=== PATIENT | male | born 1990 | race Caucasian/White ===

== ENCOUNTER 2016-10-30 16:27 | Emergency (ER) | payer MEDICAID ==
[2016-10-30] MEDS ORDERED: NS 1,000 ML IV ONE (16:30)
[2016-10-30] MEDS ORDERED: INSULIN REGULAR HUMAN 100 UNIT/ML IVP ONE (16:30)
--- NOTE | 2016-10-30 16:34 | EDPHY ---
HPI/HX/ROS/PE/MDM Narrative: CHIEF COMPLAINT: "Feeling sick" HPI: The patient is a 25 y/o male arriving via EMS complaining of "feeling sick " for the last 2-3 days. He has a history of diabetes with poor medication compliance. He reports he has been sleeping outside for the past few nights and has not had access to insulin for the last 3 days. His BGL was 368 for EMS. He only ate a small breakfast this morning. He denies fever. REVIEW OF SYSTEMS: Aside from elements discussed in the HPI, a comprehensive 10-point review of systems was reviewed and is negative. PMH: Diabetes with poor medication compliance. SOCIAL HISTORY: Currently homeless. PHYSICAL EXAM: General:Patient is alert, in no acute distress. ENT:Eyes are normal to inspection. ENT inspection normal. Neck: Normal inspection. Full range of motion. Respiratory:No respiratory distress. Breath sounds normal bilaterally. Cardiovascular: Regular rate and rhythm. Strong peripheral pulses. Normal cap refill. Abdomen:The abdomen is nontender to palpation. There are no peritoneal signs. There are normal bowel sounds. Back: Normal to inspection. No tenderness to palpation. Skin: Normal color. No rash. Warm and dry. Extremities: Normal appearance. Full range of motion. Neuro: Oriented x3. Normal motor function. Normal sensory function. ED Course: IV established. Labs drawn including CBC, CHEM. 1L IV NS administered. BGL is 384. 5 units insulin administered. MDM: This patient has an extensive history of emergency department visits secondary to noncompliance with insulin. He presents essentially for the same presentation. His glucose is elevated but there is no evidence of DKA. The patient was given IV insulin and food. On re-evaluation he feels well and his glucose remains reasonably well controlled. He is appropriate for outpatient management. - Data Points Laboratory Results: Laboratory Results 10/30/16 16:53 10/30/16 16:30 10/30/16 10/30/16 10/30/16 19:08 16:53 16:30 WBC 5.14 10^3/uL 10^3/uL (3.80-9.50) RBC 5.93 10^6/uL 10^6/uL (4.40-6.38) Hgb 17.3 g/dL g/dL (13.7-17.5) POC Hgb 14.6 gm/dL gm/dL (14.5-17.3) Hct 48.6 % % (40.0-51.0) POC Hct 43 % % (42.8-50.6) MCV 82.0 fL fL (81.5-99.8) MCH 29.2 pg pg (27.9-34.1) MCHC 35.6 g/dL g/dL (32.4-36.7) RDW 11.8 % % (11.5-15.2) Plt Count 273 10^3/uL 10^3/uL (150-400) MPV 8.8 fL fL (8.7-11.7) Neut % (Auto) 46.5 % % (39.3-74.2) Lymph % (Auto) 42.0 % % (15.0-45.0) [place] % (Auto) 9.1 % % (4.5-13.0) Eos % (Auto) 1.6 % % (0.6-7.6) Baso % (Auto) 0.6 % % (0.3-1.7) Nucleat RBC Rel Count 0.0 % % (0.0-0.2) Absolute Neuts (auto) 2.39 10^3/uL 10^3/uL (1.70-6.50) Absolute Lymphs (auto) 2.16 10^3/uL 10^3/uL (1.00-3.00) Absolute Monos (auto) 0.47 10^3/uL 10^3/uL (0.30-0.80) Absolute Eos (auto) 0.08 10^3/uL 10^3/uL (0.03-0.40) Absolute Basos (auto) 0.03 10^3/uL 10^3/uL (0.02-0.10) Absolute Nucleated RBC 0.00 10^3/uL 10^3/uL (0-0.01) Immature Gran % 0.2 % % (0.0-1.1) Immature Gran # 0.01 10^3/uL 10^3/uL (0.00-0.10) POC Sodium 131 mEq/L L mEq/L (134-144) Sodium 130 mEq/L L mEq/L (134-144) POC Potassium 4.4 mEq/L mEq/L (3.3-5.0) Potassium 4.8 mEq/L mEq/L (3.5-5.2) POC Chloride 94 mEq/L L mEq/L (96-108) Chloride 93 mEq/L L mEq/L (97-110) Carbon Dioxide 23 mEq/l mEq/l (22-31) Anion Gap 14 mEq/L mEq/L (8-16) POC BUN 20 mg/dL mg/dL (7-23) BUN 17 mg/dL mg/dL (7-23) Creatinine 0.4 mg/dL L mg/dL (0.7-1.3) POC Creatinine 0.4 mg/dL L mg/dL (0.8-1.5) Estimated GFR > 60 Glucose 384 mg/dL H mg/dL (70-100) POC Glucose 360 mg/dL H mg/dL (70-100) Calcium 9.3 mg/dL mg/dL (8.5-10.4) Medications Given: Discontinued Medications Sodium Chloride (Ns) 1,000 mls @ 0 mls/hr IV ONCE ONE PRN Reason: Wide Open Stop: 10/30/16 16:31 Last Admin: 10/30/16 17:12 Dose: 1,000 mls Insulin Human Regular (Humulin R) 5 unit IVP EDNOW ONE Stop: 10/30/16 16:31 Last Admin: 10/30/16 17:45 Dose: 5 unit Point of Care Test Results: 10/30/16 19:08 POC Sodium 131 L POC Potassium 4.4 POC Chloride 94 L POC BUN 20 POC Creatinine 0.4 L POC Glucose 360 H General Initial Vital Signs: Initial Vital Signs Temperature (C) 36.4 C 10/30/16 16:41 Heart Rate 91 10/30/16 16:41 Respiratory Rate 16 10/30/16 16:41 Blood Pressure 98/62 L 10/30/16 16:41 O2 Sat (%) 97 10/30/16 16:41 O2 Delivery Mode Room Air Allergies/Adverse Reactions: No Known Allergies Allergy (Verified 08/18/16 07:20) Home Medications: Medication Instructions Recorded NK [No Known Home Meds] 08/19/16 Departure - Departure Disposition: Home, Routine, Self-Care Clinical Impression: Hyperglycemia Condition: Good Instructions: Diabetic Hyperglycemia (ED) Additional Instructions: 1. Check your blood sugar regularly and take your insulin as prescribed. 2. Follow up with your primary care provider on Tuesday for unimproved symptoms. Referrals: [facility] [Other] - As per Instructions [facility],. [Clinic] - As per Instructions Report Scribed for: Cruz Jeong Report Scribed by: Lori Keller Date of Report: 10/30/16 Time of Report: 19:32 Physician Review and Approval Statement: Portions of this note were transcribed by an ED scribe. I personally performed the history, physical exam, and medical decision making; and confirm the accuracy of the information in the transcribed note.
[2016-10-30 16:44] VITALS: RESP 16
[2016-10-30 17:07] LABS: % IMMATURE GRANULYOCYTES 0.2 % (0.0-1.1); ABSOLUTE IMMATURE GRANULOCYTES 0.01 10^3/uL (0.00-0.10); ADD DIFF? NO; ADD MORPH? NO; ADD SCAN? NO; ATYPICAL LYMPHOCYTE FLAG 90 (0-99); FRAGMENT RBC FLAG 0 (0-99); HEMATOCRIT 48.6 % (40.0-51.0); HEMOGLOBIN 17.3 g/dL (13.7-17.5); LEFT SHIFT FLG 0 (0-99); LIPEMIA HEMOLYSIS FLAG 90 (0-99); MEAN CELL HEMOGLOBIN 29.2 pg (27.9-34.1); MEAN CELL HEMOGLOBIN CONCENTR. 35.6 g/dL (32.4-36.7); MEAN PLATELET VOLUME 8.8 fL (8.7-11.7); PLATELET CLUMPS FLAG 10 (0-99); PLATELET COUNT 273 10^3/uL (150-400); RED BLOOD CELL COUNT 5.93 10^6/uL (4.40-6.38); RED CELL DISTRIBUTION WIDTH 11.8 % (11.5-15.2)
[2016-10-30] MEDS ORDERED: INSULIN REGULAR HUMAN 100 UNIT/ML ONE (17:45)
[2016-10-30 18:01] LABS: ANION GAP 14 mEq/L (8-16); CALCIUM 9.3 mg/dL (8.5-10.4); CARBON DIOXIDE 23 mEq/l (22-31); CHLORIDE 93 mEq/L (97-110); CREATININE 0.4 mg/dL (0.7-1.3); GLOMERULAR FILTRATION RATE > 60; GLUCOSE 384 mg/dL (70-100); POTASSIUM 4.8 mEq/L (3.5-5.2); SODIUM 130 mEq/L (134-144)
[2016-10-30 19:44] VITALS: BP 112/76; PULSE 76; TEMP 96.8; O2SAT 98
== END 2016-10-30 19:45 | disposition home or self-care (01) ==
LOC: EDUNIT#
DX: E11.65 Type 2 diabetes mellitus with hyperglycemia (principal)
CPT/HCPCS: 82947-QW; 96374; J1815

== ENCOUNTER 2016-12-07 12:27 | Emergency (ER) | payer MEDICAID ==
[2016-12-07] MEDS ORDERED: NS 1,000 ML IV ONE ×2 (12:32)
[2016-12-07 14:43] LABS: % IMMATURE GRANULYOCYTES 0.2 % (0.0-1.1); ABSOLUTE IMMATURE GRANULOCYTES 0.01 10^3/uL (0.00-0.10); ADD DIFF? NO; ADD MORPH? NO; ADD SCAN? NO; ATYPICAL LYMPHOCYTE FLAG 20 (0-99); FRAGMENT RBC FLAG 0 (0-99); HEMATOCRIT 40.2 % (40.0-51.0); LEFT SHIFT FLG 0 (0-99); LIPEMIA HEMOLYSIS FLAG 90 (0-99); MEAN CELL HEMOGLOBIN CONCENTR. 34.8 g/dL (32.4-36.7); MEAN CELL VOLUME 83.4 fL (81.5-99.8); MEAN PLATELET VOLUME 8.5 fL (8.7-11.7); PLATELET CLUMPS FLAG 0 (0-99); PLATELET COUNT 245 10^3/uL (150-400); RED BLOOD CELL COUNT 4.82 10^6/uL (4.40-6.38); RED CELL DISTRIBUTION WIDTH 11.9 % (11.5-15.2)
[2016-12-07 15:00] LABS: ANION GAP 6 mEq/L (8-16); CALCIUM 8.4 mg/dL (8.5-10.4); CARBON DIOXIDE 24 mEq/l (22-31); CHLORIDE 105 mEq/L (97-110); CREATININE 0.3 mg/dL (0.7-1.3); ETHANOL SERUM < 10 mg/dL (0-10); GLOMERULAR FILTRATION RATE > 60; GLUCOSE 290 mg/dL (70-100); POTASSIUM 4.1 mEq/L (3.5-5.2); SALICYLATE < 1.0 mg/dL (2.0-20.0); SODIUM 135 mEq/L (134-144)
--- NOTE | 2016-12-07 15:40 | EDPHY ---
H & P Stated Complaint: SI - Personal History Current Tetanus/Diphtheria Vaccine: No Current Tetanus Diphtheria and Acellular Pertussis (TDAP): No - Medical/Surgical History Hx Asthma: Yes Hx Chronic Respiratory Disease: No Hx Diabetes: Yes Hx Cardiac Disease: No Hx Renal Disease: No Hx Cirrhosis: No Hx Alcoholism: No Hx HIV/AIDS: No Hx Splenectomy or Spleen Trauma: No Other PMH: PMH: DM, Asthma (non compliant), bipolar, polysubstance abuse. PSH: appy, pancreas. 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 Jaw fracture - Social History Smoking Status: Former smoker HPI/ROS: Chief complaint: Suicidal ideation, on mental health hold History of present illness: This is a 26-year-old male brought to the emergency department by EMS after he called 911 stating he was suicidal. [place] the library on a pay phone. He states he has a history of depression and a history of suicidal ideation and has tried to kill himself in the past. He is currently thinking of overdosing on medications but does not specify what medications. He states he has not acted on this as of yet. He denies other associated signs or symptoms including no homicidal ideation. No report of illness or injury. Review of systems: A 10 point review of systems was obtained and other than described above was negative (Brent Olmos) - Physical Exam Exam: General Appearance: Alert, nontoxic, resting calmly in the room. Eyes: Pupils equal and round no pallor or injection. ENT, Mouth: Mucous membranes moist. Respiratory: There are no retractions, lungs are clear to auscultation. Cardiovascular: Regular rate and rhythm. Gastrointestinal: Abdomen is soft and non tender, no masses, bowel sounds normal. Neurological: Alert. Cranial nerves 2-12 grossly intact. Strength and sensation intact and symmetrical. Skin: Warm and dry, no rashes. Musculoskeletal: Neck is supple non tender. Extremities are symmetrical, full range of motion. Psychiatric: There is no agitation. Patient is cooperative. (Brent Olmos) Constitutional: Initial Vital Signs Temperature (C) 36.6 C 12/07/16 12:41 Heart Rate 88 12/07/16 12:41 Respiratory Rate 12 12/07/16 12:41 Blood Pressure 96/70 L 12/07/16 12:41 O2 Sat (%) 94 12/07/16 12:41 O2 Delivery Mode Room Air Allergies/Adverse Reactions: No Known Allergies Allergy (Verified 08/18/16 07:20) Home Medications: Medication Instructions Recorded Lantus 100 UNITS/ML (*) 40 unit HS 12/07/16 Novolog Flexpen 12/07/16 Medical Decision Making ED Course/Re-evaluation: Patient seen under the supervision of my secondary supervising physician Dr. Evette Wells. Patient presents to the emergency department on a mental health hold for suicidal ideation. He is medically evaluated, noted to be hyperglycemic and given 2 L of normal saline. He is medically cleared for mental health evaluation. This is pending at time of dictation. Care of patient is turned over to my secondary supervising physician Dr. Jer Irizarry. ( Brent Olmos) 5:30 a.m.- The patient was stable throughout my shift. His blood glucose was over 300, thus I gave him a dose of regular insulin 10 mg IV. Repeat blood sugar was in the 180s. He was accepted for psychiatric inpatient admission by Dr. Wilson at [facility]. I have filled out an EMTALA form and the patient was transferred. (Maryse King) This patient's initial evaluation and management was carried out by ALEX Briones. I was the secondary supervising physician. I have reviewed his documentation and agree with the plan of care. (Evette Wells) Differential Diagnosis: Included but not limited to substance abuse, depression, bipolar, schizophrenia (Brent Olmos) Other Provider: PHYSICIAN DOCUMENTATION: The patient was evaluated and managed by the Physician [employer] and myself. I have reviewed the chart and agree with the findings and plan of care as documented. In addition, I examined the patient myself at 1645. History confirmed as for suicidal ideation, insulin treated with sliding scale and 40 Lantus at night. Physical findings as follows: Alert, normally conversant. 14 units subcu NovoLog. Will plan for 40 Lantus at night. Medical history reviewed in the computer includes bipolar disorder and diabetes. At 6:00 p.m. placed on a mental health hold for suicidal ideation in consultation with psychiatric trauma program manager. Signed out to Dr. King at 11:00 p.m. with inpatient psychiatric placement pending. I am the secondary supervising physician. (Jer Irizarry) - Data Points Laboratory Results: Laboratory Results 12/07/16 14:35 12/07/16 14:35 Medications Given: Discontinued Medications Sodium Chloride (Ns) 1,000 mls @ 0 mls/hr IV ONCE ONE PRN Reason: Wide Open Stop: 12/07/16 12:33 Last Admin: 12/07/16 12:48 Dose: 1,000 mls Sodium Chloride (Ns) 1,000 mls @ 0 mls/hr IV ONCE ONE PRN Reason: Wide Open Stop: 12/07/16 12:33 Last Admin: 12/07/16 13:19 Dose: 1,000 mls Insulin Aspart Prota 70%/Aspart 30% (Novolog Mix 70/30 Syringe) 14 units SC EDNOW ONE Stop: 12/07/16 16:52 Last Admin: 12/07/16 18:10 Dose: 14 units Insulin Glargine (Lantus Syringe) 40 units SC EDNOW ONE Stop: 12/08/16 22:18 Last Admin: 12/07/16 23:26 Dose: 40 units Insulin Human Regular (Humulin R) 10 unit IVP EDNOW ONE Stop: 12/08/16 04:59 Last Admin: 12/08/16 05:10 Dose: 10 unit Departure - Departure Disposition: Other Psych, Not [facility] Clinical Impression: Bipolar disorder Condition: Good Instructions: Bipolar Disorder (ED) Referrals: [facility] [Other] - As per Instructions
[2016-12-07] MEDS ORDERED: INSULIN ASPART NovoLOG 70/30 100 UNITS/ML SYR SC ONE (16:51)
[2016-12-08] MEDS ORDERED: INSULIN REGULAR HUMAN 100 UNIT/ML IVP ONE (04:58)
[2016-12-08 05:17] VITALS: BP 113/75; PULSE 95; RESP 16; TEMP 98.4; O2SAT 94
[2016-12-08] MEDS ORDERED: INSULIN GLARGINE 100 UNITS/ML SYRINGE SC ONE (22:17)
== END 2016-12-08 05:30 ==
LOC: EDUNIT#
DX: F31.32 Bipolar disorder, current episode depressed, moderate (principal); J45.909 Unspecified asthma, uncomplicated; E10.9 Type 1 diabetes mellitus without complications; Z87.891 Personal history of nicotine dependence
CPT/HCPCS: 80305; 82947-QW; 96374; G0480; J1815